=== PATIENT | female | born 1995 | race African-American/Black ===

== ENCOUNTER → 2016-09-13 | Outpatient (CLI) | payer BC ==
--- NOTE | 2016-09-13 15:16 | MAMMOGRAPHY REPORT ---
ULTRASOUND OF RIGHT BREAST: 09/13/2016 CLINICAL HISTORY: 20-year-old woman who presents after her provider felt a lump in the 12:00 right b reast on physical exam. No skin changes or nipple discharge. No family history of breast cancer. COMPARISON: No prior exams were available for comparison. FINDINGS: The patient pointed out the lump in the 12:00 right breast approximately 3-4 cm from the nipple. On palpation there is a lobulated, firm 2 cm mass. However on ultrasound, in the 12:00 rig ht breast 3-4 cm from the nipple, normal dense fibroglandular tissue is seen without evidence of a d iscrete solid or cystic mass. IMPRESSION: ACR BI-RADS CATEGORY 1: NEGATIVE There is no sonographic evidence of malignancy, or other suspicious abnormality correlating with the palpable lump in the 12:00 left breast, identified by the patient's physician. Therefore, clinical follow-up is recommended, as biopsy of a clinically suspicious mass should not be precluded by nega tive imaging. These results and recommendations were discussed with the patient at the time of the exam. Tamar hCen M.D. ay/:09/13/2016 14:51:17 Talent Management Manager: Elvia GALVIN)([place]), [facility] letter sent: Normal 1/2 BI-RADS Code: ACR BI-RADS Category 1: Negative
== END | disposition home or self-care (01) ==
LOC: C.MAMM 14:18
PROVIDERS: ATTEND Physician Assistant Medical
DX: N63 Unspecified lump in breast (principal)